=== PATIENT | male | born 1970 | race Caucasian/White ===

== ENCOUNTER 2016-11-05 19:39 | Emergency (ER) | payer OTHER ==
[2016-11-05 20:24] VITALS: BP 124/95
[2016-11-05] MEDS ORDERED: NS 0.9% 1000 ML* 1,000 ML IV ONE (21:55)
[2016-11-05] MEDS ORDERED: Ondansetron INJ* 2 MG/ML VIAL IV ONE (21:56)
--- NOTE | 2016-11-15 09:39 | UC ---
Camelia Glaser Erika, scribed for Shanna Grey DO on 11/05/16 at 2151 . Abdominal Pain Male HPI - HPI Summary HPI Summary: Patient is a 46-year-old male presenting to [facility] with a CC of intermittent nausea, vomiting, and diarrhea starting yesterday evening. Patient reports 2-3 episodes of watery diarrhea per hour last night, and notes it is about 1x/hour today. Patient states diarrhea is not particularly foul-smelling. Patient reports that he has been unable to tolerate PO intake in this time - he notes he develops nausea about 15-20 minutes after fluid intake. Patient also reports decreased appetite, diffuse abdominal cramping, myalgias, headaches, and cough. Patient denies other symptoms including sore throat, ear ache, chest pain, SOB, and urinary symptoms. Patient reports he drinks well water, but nobody else in his family is sick. 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 He denies recent travel, Abx use, camping trips, and exposure to farm animals/reptilian pets. He denies PMHx, and denies FHx HTN, DM, CAD. - History of Current Complaint Stated Complaint: VOMITING Time Seen by Provider: 11/05/16 21:20 Hx Obtained From: Patient Onset/Duration: Gradual Onset, Lasting Days - 2 day, Still Present Timing: Intermittent Episodes Lasting: - minutes Severity Initially: Moderate Severity Currently: Mild Pain Intensity: 3 Pain Scale Used: 0-10 Numeric Location: Diffuse Radiates: No Character: Cramping Aggravating Factor(s):: Food Alleviating Factor(s): Nothing Associated Signs And Symptoms: Positive: Cough, Decreased Appetite, Nausea, Vomiting, Diarrhea. Negative: Chest Pain, Back Pain, Blood in Stool, Urinary Symptoms - Allergies/Home Medications Allergies/Adverse Reactions: Allergies Allergy/AdvReac Type Severity Reaction Status Date / Time No Known Allergies Allergy Verified 02/28/16 19:21 PMH/Surg Hx/FS Hx/Imm Hx Previously Healthy: Yes Endocrine History Of: Denies: Diabetes, Thyroid Disease Cardiovascular History Of: Denies: Cardiac Disorders, Hypertension Respiratory History Of: Denies: COPD, Asthma GI/ History Of: Denies: Ulcer - Surgical History Surgical History: Yes Surgery Procedure, Year, and Place: inguinal hernia repair 2006 - Family History Known Family History: Negative: Cardiac Disease, Hypertension, Diabetes - Social History Occupation: Employed Full-time Lives: With Family Alcohol Use: Rare Substance Use Type: None Smoking Status (MU): Never Smoked Tobacco Review of Systems Constitutional: Negative Skin: Negative Eyes: Negative ENT: Negative Respiratory: Cough Cardiovascular: Negative Gastrointestinal: Abdominal Pain, Vomiting, Diarrhea, Other - nausea, unable to tolerate PO Genitourinary: Negative Motor: Negative Neurovascular: Negative Musculoskeletal: Myalgia Neurological: Headache Psychological: Negative All Other Systems Reviewed And Are Negative: Yes Physical Exam Triage Information Reviewed: Yes Appearance: Well-Appearing, No Pain Distress, Well-Nourished Vital Signs: Initial Vital Signs Temp 100.9 F 11/05/16 20:18 Pulse 96 11/05/16 20:18 Resp 18 11/05/16 20:18 BP 124/95 11/05/16 20:18 Pulse Ox 97 11/05/16 20:18 Vital Signs Reviewed: Yes Eyes: Positive: Conjunctiva Clear. Negative: Discharge ENT: Positive: Hearing grossly normal. Negative: Muffled/hoarse voice Neck: Positive: Supple, Nontender Respiratory: Positive: Lungs clear, Normal breath sounds, No respiratory distress, No accessory muscle use Cardiovascular: Positive: RRR, No Murmur Abdomen Description: Positive: Nontender, Soft. Negative: CVA Tenderness (R), CVA Tenderness (L), Distended, Guarding Bowel Sounds: Positive: Hyperactive Musculoskeletal Exam: Normal Neurological: Positive: Alert, Muscle Tone Normal Psychological Exam: Normal Psychological: Positive: Age Appropriate Behavior Skin Exam: Other - warm, dry, normal color Re-Evaluation - Re-Evaluation First Eval Re-Evaluation Time: 23:02 Change: Improved Comment: Patient is feeling improved and will be discharged at this time Abd Pain Male Course/Dx - Differential Dx/Clinical Impression Differential Diagnosis/HQI/PQRI: Other - gastroenteritis Provider Diagnoses: gastroenteritis Discharge - Discharge Plan Condition: Stable Disposition: HOME Prescriptions: Ondansetron TAB* [Zofran Tab*] 4 mg PO Q6H PRN #10 tab PRN Reason: Nausea/Vomiting Patient Education Materials: Gastroenteritis (ED), Nutrition Tips for Relief of Diarrhea (ED) Referrals: Jourdan Smyth MD [Primary Care Provider] - If Needed (FOLLOW UP IN 3-5 DAYS IF DIARRHEA FAILS TO IMPROVE.) Additional Instructions: TRY JESSICA TEA FOR FOR YOUR NAUSEA AND VOMITING. IF JESSICA DOES NOT ADAQUATELY CONTROL YOUR SYMPTOMS, YOU CAN TRY ZOFRAN. The documentation as recorded by the Camelia mooney Erika accurately reflects the service I personally performed and the decisions made by , Shanna Grey DO.
== END 2016-11-05 23:28 | disposition home or self-care (01) ==
LOC: UCEAST 19:39
DX: K52.9 Noninfective gastroenteritis and colitis, unspecified (principal)
CPT/HCPCS: 96360; 96361; 96374; 99212; G0463; J2405

== ENCOUNTER 2019-08-04 19:06 | Emergency (ER) | payer BC, OTHER ==
[2019-08-04 19:19] VITALS: BP 124/81
[2019-08-04] MEDS ORDERED: Tetan/Diph/Pertus SYR(Tdap)* 0.5 ML SYR(BOOSTRIX) use SYR contains LATEX IM ONE (19:58)
--- NOTE | 2019-08-04 19:58 | UC ---
Upper Extremity HPI - HPI Summary HPI Summary: 2-3 weeks ago patient was helping a friend move a piano and smashed right 3rd/ 4th fingers against wall, had abrasions on both fingers which seemed to heal over few days. 2 days ago he has experienced increasing pain R 4th finger at site of old abrasion. also has been wood-working and using hands more which often causes joint pain. last Tdap > 10y - History of Current Complaint Chief Complaint: UCUpperExtremity Stated Complaint: FINGER ISSUE Time Seen by Provider: 08/04/19 19:15 Hx Obtained From: Patient Onset/Duration: Sudden Onset Severity Initially: Mild Severity Currently: Moderate Pain Intensity: 4 Location Of Pain: Is Discrete @ - R 4th finger Character: Aching, Stiffness Aggravating Factor(s): Movement, Other - touching scar Alleviating Factor(s): Nothing Associated Signs And Symptoms: Positive: Swelling - mild. Negative: Redness, Bruising, Fever - Allergies/Home Medications Allergies/Adverse Reactions: Allergies Allergy/AdvReac Type Severity Reaction Status Date / Time No Known Allergies Allergy Verified 08/04/19 19:19 PMH/Surg Hx/FS Hx/Imm Hx Previously Healthy: Yes - Surgical History Surgical History: Yes Surgery Procedure, Year, and Place: inguinal hernia repair 2006 - Family History Known Family History: Negative: Cardiac Disease, Hypertension, Diabetes - Social History Occupation: Employed Full-time Lives: With Family Alcohol Use: Rare Substance Use Type: None Smoking Status (MU): Never Smoked Tobacco Review of Systems All Other Systems Reviewed And Are Negative: Yes Constitutional: Positive: Negative Skin: Positive: Other - no redness. Negative: Bruising Respiratory: Positive: Negative Cardiovascular: Positive: Negative Musculoskeletal: Positive: Other: - pain PIP joint r 4th finger. Negative: Decreased ROM - pain when making fist in affected joint Neurological: Positive: Negative Psychological: Positive: Negative Is Patient Immunocompromised?: No Physical Exam Triage Information Reviewed: Yes Appearance: Well-Appearing, No Pain Distress, Well-Nourished Vital Signs: Initial Vital Signs Temp 98.1 F 08/04/19 19:14 Pulse 61 08/04/19 19:14 Resp 18 08/04/19 19:14 BP 124/81 08/04/19 19:14 Pulse Ox 100 08/04/19 19:14 Vital Signs Reviewed: Yes Respiratory Exam: Normal Respiratory: Positive: Lungs clear Cardiovascular Exam: Normal Cardiovascular: Positive: RRR Musculoskeletal: Positive: Strength Intact, ROM Intact, Other: - slight swelling R 3rd and 4th PIP joints and R 5th DIP joint Neurological Exam: Normal Neurological: Positive: Alert Psychological Exam: Normal Skin Exam: Normal - no redness, swelling or discharge Diagnostics - Radiology No standard instances Radiology Interpretation Completed By: ED Physician - No fracture Upper Extremity Course/Dx - Differential Dx/Diagnosis Differential Diagnosis/HQI/PQRI: Arthritis, Contusion, Fracture (Closed), Strain Provider Diagnosis: Finger pain, right Discharge ED - Sign-Out/Discharge Documenting (check all that apply): Patient Departure All imaging exams completed and their final reports reviewed: No - Discharge Plan Condition: Good Disposition: HOME Prescriptions: Cephalexin CAP* [Keflex CAP*] 500 mg PO QID #28 cap Patient Education Materials: Tdap and Td Vaccines for Adults (ED), Finger Sprain (ED) Referrals: Jourdan Smyth MD [Primary Care Provider] - 3 Days (if no better) Additional Instructions: monitor finger for swelling and redness. If symptoms occur - start antibiotic otherwise, keep fingers warm, avoid overuse and use ibuprofen as directed for pain - Billing Disposition and Condition Condition: GOOD Disposition: Home
== END 2019-08-04 20:15 | disposition home or self-care (01) ==
LOC: UCEAST 19:06
DX: M79.644 Pain in right finger(s) (principal); M79.89 Other specified soft tissue disorders; Z87.828 Personal history of other (healed) physical injury and trauma
CPT/HCPCS: 90471; 90715; 99212; G0463